=== PATIENT | female | born 1955 | race American Indian/Alaskan Native ===

== ENCOUNTER 2020-02-18 15:17 | Outpatient (CLI) | payer MEDICAID ==
[2020-02-18 16:13] LABS: Basophils % (Auto) 0.7 % (0.0-1.8); Eosinophils # (Auto) 0.2 K/mm3 (0.0-0.4); Eosinophils % (Auto) 2.6 % (0.0-4.3); Hematocrit 40.8 % (30.3-42.9); Hemoglobin 13.3 gm/dl (10.1-14.3); Lymphocytes # (Auto) 1.8 K/mm3 (1.2-5.4); Lymphocytes % (Auto) 27.3 % (13.4-35.0); Mean Corpuscular HGB Conc 33 % (30-34); Mean Corpuscular Volume 88 fl (79-97); Monocytes # (Auto) 0.4 K/mm3 (0.0-0.8); Monocytes % (Auto) 6.6 % (0.0-7.3); Platelet Count 261 K/mm3 (140-440); Red Blood Count 4.66 M/mm3 (3.65-5.03); Red Cell Distribution Width 15.1 % (13.2-15.2)
[2020-02-18 16:26] LABS: Alanine Aminotransferase 15 units/L (7-56); BUN/Creatinine Ratio 16; Blood Urea Nitrogen 13 mg/dL (7-17); Calcium 9.5 mg/dL (8.4-10.2); Hemolysis Index 3; Iron 67 ug/dL (37-170); Total Iron Binding Capacity 237 mcg/dL (250-450)
[2020-02-22 13:02] LABS: Vitamin D, 25-OH, D2 8 ng/mL
== END 2020-02-18 15:18 | disposition home or self-care (01) ==
LOC: LAB 15:17
PROVIDERS: ATTEND Surgery
DX: Z00.00 Encounter for general adult medical examination without abnormal findings (principal); K30 Functional dyspepsia; D50.9 Iron deficiency anemia, unspecified; E61.9 Deficiency of nutrient element, unspecified; E11.9 Type 2 diabetes mellitus without complications
CPT/HCPCS: 36415; 80053; 82306; 82607; 83550; 83970; 84425; 85025

== ENCOUNTER 2020-05-05 13:11 | Outpatient (CLI) | payer MEDICAID ==
--- NOTE | 2020-05-05 15:08 | Fluoroscopy Report ---
UPPER GI HISTORY: GASTRO-ESOPHAGEAL REFLUX WITHOUT ESOPHAGITIS. TECHNIQUE: Single and double contrast barium technique utilized to evaluate the esophagus, stomach, and duodenal C-loop. FINDINGS: To begin the exam, swallowing was evaluated in the lateral position under direct fluorosco py. Swallowing was normal. No mucosal irregularity, mass, mass effect, or critical stenosis. There were no abnormal tertiary c ontractions as seen with dysmotility. A very small sliding hiatal hernia was witnessed during this ex am. Occasional episodes of gastroesophageal reflux to the mid esophagus were also noted. IMPRESSION: Small sliding hiatal hernia and mild gastroesophageal reflux. Fluoroscopic time: 2.1 minutes Number of fluoroscopic images: 25 Signer Name: Andrea Amin Jr, MD Signed: 05/05/2020 3:04 PM Workstation Name: [id number]
== END 2020-05-05 13:12 | disposition home or self-care (01) ==
LOC: FLUORO 13:11
PROVIDERS: ATTEND Surgery
DX: K21.9 Gastro-esophageal reflux disease without esophagitis (principal); K44.9 Diaphragmatic hernia without obstruction or gangrene
CPT/HCPCS: 74246

== ENCOUNTER 2020-05-25 11:00 | Outpatient (CLI) | payer MEDICAID | END 2020-05-26 11:00 | disposition home or self-care (01) | LOC: SLR 11:00 | PROVIDERS: ATTEND Surgery | DX: G47.30 Sleep apnea, unspecified (principal) | CPT/HCPCS: 95810 ==

== ENCOUNTER 2020-06-19 13:19 | Outpatient (CLI) | payer MEDICAID | END 2020-06-19 13:20 | disposition home or self-care (01) | LOC: PF 13:19 | PROVIDERS: ATTEND Surgery | DX: E66.01 Morbid (severe) obesity due to excess calories (principal) | CPT/HCPCS: 94010 ==

== ENCOUNTER 2020-08-03 11:00 | Outpatient (CLI) | payer MEDICAID | END 2020-08-03 11:01 | disposition home or self-care (01) | LOC: SLR 11:00 | PROVIDERS: ATTEND Surgery | DX: G47.30 Sleep apnea, unspecified (principal); G47.33 Obstructive sleep apnea (adult) (pediatric) | CPT/HCPCS: 95811 ==

== ENCOUNTER 2020-12-05 06:28 | Day surgery (SDC) | payer MEDICAID ==
[~2020-12-05 06:28] MED LIST: WATER FOR IRRIG STERILE 1,000 ML BOTTLE ONE; WATER FOR IRRIG STERILE 250 ML BOTTLE IR ONE
[2020-12-05] MEDS ORDERED: SODIUM CHLORIDE 0.9% 1000 ML 1,000 ML IV SCH (07:00)
--- NOTE | 2020-12-05 07:43 | Anesthesia Consultation ---
Anesthesia Consult and Med Hx Date of service: 12/05/20 - Airway Anesthetic Teeth Evaluation: Dentures (Full plates - upper and lower) ROM Head & Neck: Adequate Mental/Hyoid Distance: Adequate Mallampati Class: Class II Intubation Access Assessment: Probably Good - Pulmonary Exam CTA: Yes - Pre-Operative Health Status ASA Pre-Surgery Classification: ASA3 Proposed Anesthetic Plan: MAC - Pulmonary Hx Smoking: No Hx Asthma: No COPD: No Hx Pneumonia: No Hx Sleep Apnea: No - Cardiovascular System Hx Hypertension: Yes (1999, DENIES CHEST PAIN, SOB) Hx Coronary Artery Disease: Yes (PT DENIES, BUT HAS OLD INFARCT CONFIRMED BY EKG) Hx Heart Attack/AMI: Yes - Central Nervous System 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
--- NOTE | 2020-12-05 07:43 | Anesthesia Day of Surgery ---
Anesthesia Day of Surgery - Day of Surgery Patient Examined: Yes Patient H&P Reviewed: Yes Patient is NPO: Yes Beta Blockers: No Cardiac Clearance: No Pulmonary Clearance: No
[2020-12-05] MEDS ORDERED: LIDOCAINE MPF (2%) 20 MG/1 ML VIAL 5 ML ONE (07:45)
[2020-12-05] MEDS ORDERED: propofoL 200 MG/20 ML VIAL IV ONE (07:45)
[2020-12-05] MEDS ORDERED: ONDANSETRON 4 MG/2 ML INJ ONE (07:45)
[2020-12-05] MEDS ORDERED: fentaNYL 100 MCG/2 ML INJ ONE (07:45)
--- NOTE | 2020-12-05 08:01 | Discharge Summary ---
Providers - Providers Date of Admission: 12/05/2020 Date of discharge: 12/05/20 Attending physician: MUSTAPHA EDWARDS MD Primary care physician: JIMMY CERON Hospitalization Reason for admission: s/p pre-op planning for egd prior to bariatric surgery Condition: Good Procedures: egd with bx Hospital course: Pt presented for a pre-op EGD as part of planning for up coming bariatric surgery. Procedure was uneventful and pt recovered well and was discharged to home. Disposition: 01 HOME / SELF CARE / HOMELESS Final Discharge Diagnosis (Prints w/discharge instructions): gerd, morbid obesity Core Measure Documentation - Palliative Care Palliative Care/ Comfort Measures: Not Applicable - Core Measures Any of the following diagnoses?: none Exam - Physical Exam Narrative exam: unchanged from pre-op Plan Activity: advance as tolerated Diet: low carbohydrate Follow up with: JIMMY CERON MD [Primary Care Provider] - 7 Days
--- NOTE | 2020-12-05 08:03 | Operative Report ---
Operative Report Operative Report: DATE: 12/05/2020 SURGERY: Upper endoscopy. SURGEON: Adi Lockhart M.D. PROCEDURE: EGD with biopsy PRE OP DX: morbid obesity, GERD POST OP DX: morbid obesity, GERD TYPE OF ANESTHESIA: MAC. ESTIMATED BLOOD LOSS: None. COMPLICATIONS: None. SPECIMENS REMOVED: antral biopsy FINDINGS: 1. hiatal hernia. 2. mild gastritis INDICATIONS:INDICATION FOR PROCEDURE: Patient is a 65-year-old female with a long history of morbid obesity. She is planned to have a weight loss procedure and is here for preoperative planning EGD. PROCEDURE DETAILS: After consent was reviewed, patient was taken back to the operating room where patient was placed in the left lateral decubitus position and a bite block was placed in the mouth. After a time-out was called, MAC anesthesia was initiated. I then passed the endoscope into her oropharynx, into her esophagus, visualized the entire esophagus, which was all within normal limits. Z-line was noted to about 35cm from incisors. I then visualized the stomach and the first portion of the duodenum and there were no abnormalities I could clearly visualize except for antral gastritis. A cold forceps biopsy of the antrum was taken and will be sent to pathology to evaluate for H.pylori. I then retroflexed the scope in the stomach and visualized the hiatus and I could see a small hiatal hernia. I then desufflated the stomach and removed the endoscope. Patient tolerated procedure well and was transferred to recovery room in good and stable condition.
--- NOTE | 2020-12-05 09:58 | Post Anesthesia Evaluation ---
- Post Anesthesia Evaluation Patient Participated: Yes Airway Patent: Yes Stable Respiratory Function: Yes Nausea/Vomiting: No Temp > 96.8F: Yes Pain Manageable: Yes Adequeate Hydration: Yes Anesthesia Complications: No
[2020-12-05 10:32] VITALS: BP 104/68
== END 2020-12-05 09:10 | disposition home or self-care (01) ==
LOC: GIO 06:28
PROVIDERS: ATTEND Surgery
DX: E66.01 Morbid (severe) obesity due to excess calories (principal); K21.9 Gastro-esophageal reflux disease without esophagitis; K44.9 Diaphragmatic hernia without obstruction or gangrene; K29.50 Unspecified chronic gastritis without bleeding; K31.89 Other diseases of stomach and duodenum; I10 Essential (primary) hypertension; E78.00 Pure hypercholesterolemia, unspecified; I25.2 Old myocardial infarction; G47.9 Sleep disorder, unspecified; I25.10 Atherosclerotic heart disease of native coronary artery without angina pectoris; M19.90 Unspecified osteoarthritis, unspecified site; Z86.73 Personal history of transient ischemic attack (TIA), and cerebral infarction without residual deficits; Z79.899 Other long term (current) drug therapy; Z98.890 Other specified postprocedural states; Z88.8 Allergy status to other drugs, medicaments and biological substances
CPT/HCPCS: 43239; 88305; 88342; J2405; J2704; J3010; J7030

== ENCOUNTER 2021-10-04 10:10 | Outpatient (CLI) | payer MEDICAID ==
[2021-10-04 11:17] LABS: Hematocrit 39.9 % (30.3-42.9); Mean Corpuscular HGB Conc 33 % (30-34); Mean Corpuscular Volume 90 fl (79-97); Platelet Count 239 K/mm3 (140-440); Red Blood Count 4.44 M/mm3 (3.65-5.03); Red Cell Distribution Width 15.1 % (13.2-15.2)
[2021-10-04 12:11] LABS: % Iron Saturation 31.42 %; Alanine Aminotransferase 14 units/L (7-56); Albumin 4.6 g/dL (3.9-5); Blood Urea Nitrogen 8 mg/dL (7-17); Calcium 9.5 mg/dL (8.4-10.2); Chol/HDL Ratio 1.66 %; HDL Cholesterol 92 mg/dL (40-59); Hemolysis Index 5; Iron 82 ug/dL (37-170); LDL Cholesterol,Direct 59 mg/dL (50-130); Total Iron Binding Capacity 261 mcg/dL (250-450)
[2021-10-04 12:14] LABS: BUN/Creatinine Ratio 11
== END 2021-10-04 10:11 | disposition home or self-care (01) ==
LOC: LAB 10:10
PROVIDERS: ATTEND Surgery
DX: Z13.29 Encounter for screening for other suspected endocrine disorder (principal); Z13.21 Encounter for screening for nutritional disorder; E11.9 Type 2 diabetes mellitus without complications; K90.9 Intestinal malabsorption, unspecified; E66.01 Morbid (severe) obesity due to excess calories; Z98.84 Bariatric surgery status; E55.9 Vitamin D deficiency, unspecified; K30 Functional dyspepsia
CPT/HCPCS: 36415; 80053; 80061; 82306; 82728; 83036; 83550; 84425; 84443; 84446; 85027